=== PATIENT | male | born 1970 | race Caucasian/White ===

== ENCOUNTER 2019-08-24 13:38 | Emergency (ER) | payer MEDICARE, MEDICAID, SELFPAY ==
--- NOTE | ~2019-08-24 | XR_ITS ---
EXAMINATION: XR foot RT min 3V EXAM DATE: 08/24/2019 14:02 INDICATION: Initial encounter following injury, with pain of the right foot. TECHNIQUE: Right foot dorsoplantar, lateral and oblique projections obtained and reviewed. There is no prior study for comparison. FINDINGS: Right metatarsal bones unremarkable. Small calcaneal spurs. There are no acute fractures o r dislocations identified. There is no subcutaneous gas. The soft tissue is unremarkable. There a re no radiopaque foreign bodies. IMPRESSION: No acute osseous findings. Reviewed, dictated and finalized at location A. IMPRESSION: No acute osseous findings.
--- NOTE | 2019-08-24 13:46 | ED.GENADULT ---
HPI - General Adult General Chief complaint: Extremity Injury, Lower Stated complaint: rt foot injury Time Seen by Provider: 08/24/19 13:52 Source: patient Mode of arrival: ambulatory Limitations: no limitations History of Present Illness HPI narrative: 49-year-old male patient presents to the [facility] with complaints of right foot pain. Patient states that he was in the garage today and a large heavy car part fell on his right foot. Patient states he has a lot of pain around first and second digit. Patient states it does hurt to walk on it. Patient denies take anything for pain prior to arrival. Patient states he does feel like his big toe is a little numb. Related Data Home Medications Medication Instructions Recorded Confirmed gabapentin 400 mg capsule 400 mg PO TID 04/25/19 naproxen 500 mg tablet 500 mg PO BID 04/25/19 sildenafil 25 mg tablet 25 mg PO DAILY PRN 04/25/19 Allergies Allergy/AdvReac Type Severity Reaction Status Date / Time azithromycin Allergy Mild Rash Verified 04/25/19 09:50 Review of Systems Review of Systems: Narrative: CONSTITUTIONAL: Denies fever, chills, or sweats. EYES: Denies visual changes, redness, or discharge. ENT: Denies rhinorrhea, congestion, sore throat, or otalgia. CARDIOVASCULAR: Denies chest pain, palpitations, or edema. RESPIRATORY: Denies cough or dyspnea. GASTROINTESTINAL: Denies abdominal pain, nausea, vomiting, or diarrhea. GENITOURINARY: Denies dysuria or hematuria. SKIN: Denies rash or itching. MUSCULOSKELETAL: Denies back pain, joint pain, or myalgia. Positive right foot pain NEUROLOGIC: Denies headache, numbness, or weakness. PSYCHIATRIC: Denies anxiety or depression. [facility] Past Medical History Medical History Essential (primary) hypertension History of shingles (~2019) Intervertebral disc disorders with myelopathy, lumbar region Lymph node enlargement Vitamin D deficiency Surgical History Surgical History History of thyroidectomy Family History Family History Mother Patient's mother is in good health Father Patient's father is in good health Family history of diabetes mellitus in first degree relative Sibling Patient's sister is in good health Patient's brother is in good health Grandparent Diabetes mellitus Social History Social History Smoking status: Never smoker Second hand tobacco smoke exposure: No Alcohol intake: current Substance use: never Gender identity (if verbalized by the patient): Female Spiritual care concerns: No Agree to blood products: Yes Comments At the time of my signature I agree with nursing past medical history, surgical, social, and family history. There is no relevant family history pertinent to the presenting complaint. Exam Narrative: Exam Narrative: GENERAL: Well-appearing, well-nourished, and in no acute distress. HEAD: Normocephalic, atraumatic. EYES: PERRLA and EOMI. ENT: Nares clear, no rhinorrhea or epistaxis. Mucous membranes moist. NECK: Supple. No lymphadenopathy CHEST: Clear to auscultation. No respiratory distress. HEART: Regular rate and rhythm. No murmur heard. Normal peripheral pulses. ABDOMEN: Soft, nontender, nondistended, normal active bowel sounds. EXTREMITIES: Patient able to bear weight and ambulate without pain. No surface trauma, ecchymosis erythema, lesions, ulcers or break in skin integrity. The R foot is without obvious asymmetry or deformity when compared to the L foot. No bony step-off, tender to palpation over the first and second metatarsal, pain noted on palpation to the medial side of the right foot. No tenderness noted to the midfoot or hindfoot or sole. Normal plantar, pain with dorsiflexion, no pain with inversion/eversion. Distal motor and neurovascu
[2019-08-24 13:47] VITALS: BP 138/92; PULSE 80; RESP 18; TEMP 36.5; O2SAT 100
== END 2019-08-24 14:25 | disposition home or self-care (01) ==
PROVIDERS: Emergency Provider Nurse Practitioner Family; PCP Nurse Practitioner Family
DX: S93.601A Unspecified sprain of right foot, initial encounter (principal); W20.8XXA Other cause of strike by thrown, projected or falling object, initial encounter; I10 Essential (primary) hypertension
CPT/HCPCS: 73630; 99213; G0463

== ENCOUNTER → 2020-06-14 12:18 | Outpatient (CLI) | payer MEDICARE, MEDICAID, SELFPAY ==
--- NOTE | ~2020-06-14 | MR_ITS ---
EXAMINATION: MR lumbar spine wo/w con DATE: 06/14/2020 13:08 INDICATION: Low back pain. Lumbar radiculopathy. TECHNIQUE: Magnetic resonance imaging (MRI) of the lumbar spine was performed without and with 20 mL MultiHance intravenous contrast. Sequences included sagittal T2-weighted FSE, sagittal STIR FSE, and sagittal and axial T1-weighted FSE. Postcontrast sequences included axial T2-weighted FSE and axial a nd sagittal T1-weighted FS FSE. COMPARISON: Lumbar MRI 06/28/2018 FINDINGS: There is 5 mm retrolisthesis of L5 on S1. There are changes of anterior fusion procedure at L5-S1 with interbody device and anterior plate and screws. There is mild chronic anterior wedging of T10-L3 vertebral bodies. There are Schmorl's nodes at all levels. There is mildly decreased disc hei ght at L3-L4. The distal spinal cord signal intensity is normal. The conus medullaris is at L1-L2. Th ere is severe atrophy of left kidney. There are cysts in left kidney measuring up to 2.7 cm. The foll owing disc levels are specifically discussed: L1-L2: The disc does not extend beyond the endplate margin. There is mild bilateral facet joint osteo arthritis. There is no neural foraminal stenosis. There is no central canal stenosis. L2-L3: The disc is mildly bulging. There is mild bilateral facet joint osteoarthritis. There is mild bilateral neural foraminal stenosis. There is mild central canal stenosis. L3-L4: The disc is bulging. There is moderate bilateral facet joint osteoarthritis. There is mild magalie ateral neural foraminal stenosis. There is mild central canal stenosis. L4-L5: The disc is mildly bulging. There is severe bilateral facet joint osteoarthritis. There is mil d bilateral neural foraminal stenosis. There is mild central canal stenosis. L5-S1: The disc does not extend beyond the endplate margin. There is no facet joint osteoarthritis. T here is mild bilateral neural foraminal stenosis. There is no central canal stenosis. IMPRESSION: 1. Mild lumbar spondylosis, stable from 06/28/2018. 2. Anterior fusion procedure at L5-S1. Reviewed, dictated and finalized at location A. [employer]
[2020-06-14 12:35] LABS: Estimated Glomerular Filt Rate > 60
== END ==
PROVIDERS: Visit Provider Nurse Practitioner Family
DX: M47.26 Other spondylosis with radiculopathy, lumbar region (principal); Z98.1 Arthrodesis status
CPT/HCPCS: 72158; A9577

== ENCOUNTER 2021-02-17 01:25 | Day surgery (SDC) | payer MEDICARE, MEDICAID, SELFPAY ==
[2021-02-06 08:10] VITALS: BMI 33.5
--- NOTE | 2021-02-14 14:00 | PM.HPGS ---
History of Present Illness History of Present Illness Consent: Risks, benefits, and alternatives have been discussed and questions answered. Patient agrees to proceed with procedure. Chief complaint: positive cologuard Narrative: Mathew Nava is a 51 year old male here for colon cancer screening. Review of Systems Review of Systems: All systems reviewed & are unremarkable except as noted in HPI and below PMFSH Past Medical History Medical History Anxiety Congenital solitary kidney Right kidney is present Erectile dysfunction Essential (primary) hypertension GERD without esophagitis History of shingles (~2019) Intervertebral disc disorders with myelopathy, lumbar region Vitamin D deficiency Surgical History Surgical History History of thyroidectomy Family History Family History Mother Patient's mother is in good health Father Patient's father is in good health Family history of diabetes mellitus in first degree relative Sibling Patient's sister is in good health Patient's brother is in good health Grandparent Diabetes mellitus Social History Social History Smoking status: Never smoker Second hand tobacco smoke exposure: No Alcohol intake: current Alcohol use details: on occasion Substance use: never Living arrangements: with family Gender identity (if verbalized by the patient): Female Spiritual care concerns: No Agree to blood products: Yes Meds Home Medications and Allergies Home Medications Medication Instructions Recorded Confirmed Type cyclobenzaprine 10 mg tablet 10 mg PO TID PRN tablet 01/16/21 02/06/21 History ibuprofen 400 mg PO Q6H PRN 02/06/21 02/06/21 History Allergies Allergy/AdvReac Type Severity Reaction Status Date / Time azithromycin Allergy Mild Rash Verified 02/17/21 10:28 Exam Resp: Auscultation: clear to auscultation bilaterally Cardio: Rate: regular rate Rhythm: regular rhythm GI: GI Palp: Yes Soft to palpation and No Tenderness to palpation present (GI) Assessment and Plan Assessment and plan (1) Colon cancer screening: Code(s): Z12.11 - Encounter for screening for malignant neoplasm of colon Status: Acute Assessment and Plan: Colonoscopy with possible biopsy or polypectomy or cautery or injection of substances.
[2021-02-17 10:30] VITALS: BP 131/94; PULSE 72; RESP 18; TEMP 36.4; O2SAT 99; BMI 33.8
[2021-02-17] MEDS: LACTATED RINGERS 1,000 ML 150 ML IV CONT (10:40)
--- NOTE | 2021-02-17 11:07 | P.PNAN_ITS ---
Anes - Initial Pre Proc Eval Procedure: Operation Date: 02/17/21 11:30 Proposed Procedures p Colonoscopy - John Lester MD Date/Time: 02/17/21 11:07 Surgeon: John Lester MD Pre Op Diagnosis: positive cologuard Patient Data Age: 51 Gender: M Height: 1.8 m Weight: 110 kg Last Vital Signs Temp 36.4 C 02/17/21 10:30 Pulse 72 02/17/21 10:30 Resp 18 02/17/21 10:30 BP 131/94 H 02/17/21 10:30 Pulse Ox 99 02/17/21 10:30 Allergies Allergy/AdvReac Type Severity Reaction Status Date / Time azithromycin Allergy Mild Rash Verified 02/17/21 10:28 Home Medications Medication Instructions Recorded Confirmed Type cyclobenzaprine 10 mg tablet 10 mg PO TID PRN tablet 01/16/21 02/06/21 History ibuprofen 400 mg PO Q6H PRN 02/06/21 02/06/21 History Patient hx anesthesia problems: none Family hx anesthesia problems: none Results Review: All pre-operative results and documents have been reviewed as part of the pre-operative evaluation. [facility] Past Medical History Medical History (Updated 02/17/21 @ 11:10 by Paolo Lopez DO) Anxiety Congenital solitary kidney Right kidney is present Erectile dysfunction GERD without esophagitis History of shingles (~2019) Intervertebral disc disorders with myelopathy, lumbar region Vitamin D deficiency Surgical History Surgical History History of thyroidectomy Family History Family History Mother Patient's mother is in good health Father Patient's father is in good health Family history of diabetes mellitus in first degree relative Sibling Patient's sister is in good health Patient's brother is in good health Grandparent Diabetes mellitus Social History Social History Smoking status: Never smoker Second hand tobacco smoke exposure: No Alcohol intake: current Alcohol use details: on occasion Substance use: never Living arrangements: with family Gender identity (if verbalized by the patient): Female Spiritual care concerns: No Agree to blood products: Yes Anes - Eval Final PreProcedure Day of Procedure 02/17/21 11:07 Patient weight: obese Heart: regular rate and rhythm Lungs: clear to auscultation and normal air movement Airway: Mallampati scale class II Neurological: alert and oriented Last oral intake: >/= 8 hours ASA classification: III Emergent: no Anesthetic plan: proceed Anesthesia type and monitoring: general GIVS and standard monitoring Results Review: All pre-operative results and documents have been reviewed as part of the pre-operative evaluation. Informed Consent: The patient's anesthetic plan and its attendant risks and benefits were discussed with the patient/family/POA. Questions were solicited and answers provided to the satisfaction of the patient/family/POA.
[2021-02-17 11:50] VITALS: BP 114/81; PULSE 78; RESP 21; O2SAT 96
[2021-02-17 12:00] VITALS: BP 117/77; PULSE 62; RESP 13; O2SAT 97
[2021-02-17 12:10] VITALS: BP 124/90; PULSE 57; RESP 15; O2SAT 99
== END 2021-02-17 12:18 | disposition home or self-care (01) ==
PROVIDERS: PCP Nurse Practitioner Family; Visit Provider Internal Medicine Gastroenterology
PROC: 0DJD8ZZ Inspection of Lower Intestinal Tract, Via Natural or Artificial Opening Endoscopic (ICD-10-PCS; CPT 45378; principal; 2021-02-17 11:30)
DX: Z12.11 Encounter for screening for malignant neoplasm of colon (principal); D12.5 Benign neoplasm of sigmoid colon; R19.5 Other fecal abnormalities; F41.9 Anxiety disorder, unspecified; K21.9 Gastro-esophageal reflux disease without esophagitis; N52.9 Male erectile dysfunction, unspecified; E55.9 Vitamin D deficiency, unspecified; E66.9 Obesity, unspecified; Z68.33 Body mass index [BMI] 33.0-33.9, adult
CPT/HCPCS: G0121; 88305; J2704; J7120

== ENCOUNTER → 2021-03-06 03:05 | Outpatient (CLI) | payer MEDICARE, MEDICAID, SELFPAY ==
[2021-03-06 17:42] LABS: SARS-CoV-2 RNA PCR Negative
== END ==
PROVIDERS: PCP Nurse Practitioner Family; Visit Provider Nurse Practitioner
DX: Z20.822 Contact with and (suspected) exposure to COVID-19 (principal)
CPT/HCPCS: C9803; U0003; U0005

== ENCOUNTER → 2021-04-03 08:04 | Outpatient (CLI) | payer MEDICARE, MEDICAID, SELFPAY ==
[2021-04-03 18:39] LABS: SARS-CoV-2 RNA PCR Positive
== END ==
PROVIDERS: PCP Nurse Practitioner Family; Visit Provider Nurse Practitioner
DX: U07.1 COVID-19 (principal)
CPT/HCPCS: C9803; U0003; U0005

== ENCOUNTER → 2022-08-06 10:20 | Outpatient (CLI) | payer MEDICARE, MEDICAID, SELFPAY ==
--- NOTE | ~2022-08-06 | MR_ITS ---
MRI of the lumbar spine Clinical History: Back pain Technique: Axial T2-weighted images, and sagittal T1-weighted, T2-weighted, and T2 fat-sat images wer e acquired. COMPARISON: 06/14/2020 Findings: Stable anterior fusion hardware extending from L5 to S1, with associated susceptibility art ifact. No fracture or sublocation evident. No suspicious bone marrow signal abnormality seen. At L1-L2, there is no disc bulge or herniation. No spinal canal stenosis or neural foraminal narrowin g. Prominent anterior marginal osteophytes noted. At L2-L3, there is no disc bulge or herniation. There is no spinal canal stenosis or neural foraminal narrowing. At L3-L4, there is mild disc bulge and minimal facet joint hypertrophy. No spinal canal stenosis. The re is mild bilateral neural foraminal narrowing. At L4-L5, there is mild diffuse disc bulge with facet arthropathy. No spinal canal stenosis. There is mild to moderate bilateral neural foraminal narrowing. At L5-S1, there is no disc bulge or herniation. There is facet arthropathy. No spinal canal stenosis. There is moderate right neural foraminal narrowing. Left neural foramen preserved. Paravertebral soft tissues are unremarkable. Probable prior left nephrectomy. Impression: Stable anterior fusion from L5 to S1. Mild degenerative spondylosis, as above. Reviewed, dictated and finalized at location . Impression: Stable anterior fusion from L5 to S1. Mild degenerative spondylosis, as above.
== END ==
PROVIDERS: PCP Nurse Practitioner Family
DX: M47.816 Spondylosis without myelopathy or radiculopathy, lumbar region (principal); Z98.1 Arthrodesis status
CPT/HCPCS: 72148

== ENCOUNTER → 2023-02-04 09:13 | Outpatient (CLI) | payer MEDICARE, MEDICAID, SELFPAY ==
--- NOTE | ~2023-02-04 | MR_ITS ---
MRI of the thoracic spine Clinical History: Back pain Technique: Axial T2-weighted and gradient images, and sagittal T1-weighted, T2-weighted, and STIR vaishali ges were acquired. Findings: There is mild loss of height of numerous vertebral bodies from T8 through L2 comment mild i rregularity of the endplates. There is mild to moderate degenerative disc narrowing throughout these levels. No suspicious bone marrow signal abnormality seen. There is probable mild kyphosis. No significant disc bulge or herniation seen at any thoracic level. No spinal canal stenosis or cord compression identified. Paravertebral soft tissues are unremarkable. Left kidney is markedly atrophic. 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 No acute reality seen. No spinal canal stenosis or cord compression. Reviewed, dictated and finalized at [facility]. Impression: Findings suggestive of Scheuermann's disease of the lower thoracic and upper chang mbar spine, as detailed above. No acute reality seen. No spinal canal stenosis or cord compression.
== END ==
PROVIDERS: PCP Nurse Practitioner Family; Visit Provider Nurse Practitioner Family
DX: M54.6 Pain in thoracic spine (principal)
CPT/HCPCS: 72146

== ENCOUNTER 2024-06-05 09:08 | Outpatient (CLI) | payer MEDICARE, MEDICAID, SELFPAY ==
--- NOTE | ~2024-06-05 | CT_ITS ---
EXAMINATION: CT pelvis wo con DATE: 06/05/2024 09:28 INDICATION: Sacroiliitis. TECHNIQUE: Computed tomography (CT) of the pelvis was performed without intravenous contrast. Automat ed exposure control and iterative reconstruction technique were employed. The dose-length product was 617.12 mGy-cm. COMPARISON: None FINDINGS: The prostate is moderately enlarged. There is a left inguinal hernia containing fat. There are no dilated loops of bowel. There are no pathologically enlarged lymph nodes. There is no free int raperitoneal fluid. There is a subcutaneous electronic device in left buttock. There are changes of a nterior fusion procedure at L5-S1 with healed interbody bone graft and anterior plate and screws. The re is mild lumbar spondylosis. There is moderate osteoarthritis of the sacroiliac joints. There is mo derate osteoarthritis of the hips. IMPRESSION: 1. Moderate osteoarthritis of the sacroiliac joints. No evidence of inflammatory arthropathy. Reviewed, dictated and finalized at location B. [facility] IMPRESSION: 1. Moderate osteoarthritis of the sacroiliac joints. No evidence of inflammator y arthropathy.
== END 2024-06-05 09:09 | disposition home or self-care (01) ==
LOC: MICIMG 09:10
PROVIDERS: PCP Internal Medicine; Visit Provider Nurse Practitioner Family
DX: M47.898 Other spondylosis, sacral and sacrococcygeal region (principal); M46.1 Sacroiliitis, not elsewhere classified
CPT/HCPCS: 72192